=== PATIENT | male | born 1950 | race Caucasian/White ===

== ENCOUNTER 2023-10-21 09:57 | Emergency (ER) | payer MEDICARE, SELFPAY ==
[2023-10-21 10:16] VITALS: BP 145/75; PULSE 72; RESP 16; TEMP 36.9; O2SAT 98
--- NOTE | 2023-10-21 10:21 | ED.URI ---
HPI - URI/Sore Throat General Chief Complaint: Upper Respiratory Infection Stated Complaint: swollen/sore throat Time Seen by Provider: 10/21/23 10:41 Source: patient and RN notes reviewed Mode of arrival: ambulatory Limitations: no limitations History of Present Illness HPI Narrative: 73-year-old male presents with concern for sore throat, feeling of swelling in the throat. Reports symptoms started after he had a tooth pulled week ago. He was not on antibiotics after having the tooth pulled. He reports feels like something is getting stuck in his throat when he swallows. He reports runny nose but denies sinus pain or pressure. Denies fever, body aches, chills, sweats. Denies cough, headache MD elicited complaint: cough and sore throat Related Data Home Medications Medication Instructions Recorded Confirmed montelukast 10 mg tablet 10 mg PO DAILY 10/21/23 10/21/23 pravastatin 40 mg tablet 40 mg PO DAILY 10/21/23 10/21/23 rivaroxaban 20 mg tablet (Xarelto) 20 mg PO DAILY 10/21/23 10/21/23 Allergies Allergy/AdvReac Type Severity Reaction Status Date / Time erythromycin base Allergy Unknown Verified 10/21/23 10:25 Penicillins Allergy Unknown Verified 10/21/23 10:25 Review of Systems Review of Systems: CONSTITUTIONAL: Denies malaise, chills, sweats, or fever. EYES: Denies visual changes, redness, or discharge. ENT: Reports rhinorrhea, sore throat. Denies congestion, sinus pain, otalgia CARDIOVASCULAR: Denies chest pain, palpitations, or edema. RESPIRATORY: Reports cough. Denies dyspnea. GASTROINTESTINAL: Denies abdominal pain, nausea, vomiting, diarrhea SKIN: Denies rash or itching. MUSCULOSKELETAL: Denies myalgia. NEUROLOGIC: Denies headache. All systems reviewed & are unremarkable except as noted in HPI and below PMFSH Comments At time of signature, agree with nursing past medical, surgical, social and family history. There is no relevant family history pertinent to the presenting complaint Exam Narrative: GENERAL: Well-appearing, well-nourished, and in no acute distress. HEAD: Normocephalic EYES: PERRLA, conjunctivae clear ENT: Nares clear, clear discharge. Mucous membranes moist. TM pearly dominguez with sharp light reflex bilaterally; no tragal tenderness. Oropharynx not erythematous without lesions. Tonsils mildly enlarged and without exudate, no drooling, no hoarseness, no trismus, uvula midline. NECK: Supple. No lymphadenopathy CHEST: Clear to auscultation, breath sounds equal. No wheezing, rhonchi, rales, or stridor. No respiratory distress, speaks in full sentences. HEART: Regular rate and rhythm. No murmur heard. SKIN: Warm, dry, no rash. NEURO: Alert and oriented x3. PSYCH: Normal mood and affect Course Course Emergency Course: Patient is aware of diagnosis, understands and agrees to treatment plan. Anticipatory guidance given. Patient agrees to follow-up as directed and is aware of reasons to seek care at the emergency department. Portions of this record may have been created with voice recognition software Level of Care: Express Care Visit Vital Signs Vital signs: Vital Signs Temperature 98.5 F 10/21/23 10:16 Pulse Rate 72 10/21/23 10:16 Respiratory Rate 16 10/21/23 10:16 Blood Pressure 145/75 H 10/21/23 10:16 Pulse Oximetry 98 10/21/23 10:16 Oxygen Delivery Room Air 10/21/23 10:16 Temperature 98.5 F 10/21/23 10:16 Pulse Rate 72 10/21/23 10:16 Respiratory Rate 16 10/21/23 10:16 Blood Pressure 145/75 H 10/21/23 10:16 Pulse Oximetry 98 10/21/23 10:16 Oxygen Delivery Room Air 10/21/23 10:16 Reviewed. MDM - URI/Sore Throat MDM Narrative Medical decision making narrative: Differential diagnosis considered: Hopper virus, strep pharyngitis, allergic rhinitis, upper respiratory tract infection, sinusitis, rhinosinusitis, nasopharyngitis. viral pharyngitis, otitis media, otitis externa, pneumonia, bronchitis, viral cough syndrome, viral syndrom
== END 2023-10-21 10:55 | disposition home or self-care (01) ==
PROVIDERS: Emergency Provider Nurse Practitioner; PCP Family Medicine
DX: J02.9 Acute pharyngitis, unspecified (principal); Z86.73 Personal history of transient ischemic attack (TIA), and cerebral infarction without residual deficits
CPT/HCPCS: 87081; 87880; 99213; G0463